=== PATIENT | female | born 1945 | race Hispanic/Latino ===

== ENCOUNTER 2016-11-01 13:30 | Emergency (ER) | payer OTHER, MEDICARE ==
[2016-11-01 13:33] VITALS: BP 132/77; PULSE 97; RESP 16; TEMP 98.2; O2SAT 98
[2016-11-01 13:34] VITALS: BMI 21.9
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
== END 2016-11-01 14:53 | disposition home or self-care (01) ==
LOC: SUPCPDRO 13:30 → H.ER 13:30
DX: S30.0XXA Contusion of lower back and pelvis, initial encounter (principal); M51.26 Other intervertebral disc displacement, lumbar region; E03.9 Hypothyroidism, unspecified; V03.90XA Pedestrian on foot injured in collision with car, pick-up truck or van, unspecified whether traffic or nontraffic accident, initial encounter; Y93.9 Activity, unspecified; Y92.410 Unspecified street and highway as the place of occurrence of the external cause